=== PATIENT | female | born 1950 | race Caucasian/White ===

== ENCOUNTER 2018-04-27 10:08 | Emergency (ER) | payer MEDICARE, BC ==
--- NOTE | 2018-04-27 12:23 | UC ---
UC General HPI - HPI Summary HPI Summary: 2-3 day hx increasing redness and swelling R middle toe. no injury. hx deformity and surgery due to RA. - History of Current Complaint Chief Complaint: UCLowerExtremity Stated Complaint: RIGHT FOOT 3RD TOE CONCERN Time Seen by Provider: 04/27/18 12:15 Hx Obtained From: Patient Onset/Duration: Gradual Onset Pain Intensity: 8 - Allergy/Home Medications Allergies/Adverse Reactions: Allergies Allergy/AdvReac Type Severity Reaction Status Date / Time No Known Allergies Allergy Verified 04/27/18 10:27 Home Medications: Home Medications Albuterol HFA INHALER* [Ventolin HFA Inhaler*] 1 - 2 puff INH Q4H PRN 04/27/18 [ History Confirmed 04/27/18] Calcium Carbonate/Vitamin D3 [Calcium 500+D 500-200 mg-Unit] 2 tab PO BID [History Confirmed 04/27/18] Cevimeline(NF) [Evoxac(NF)] 30 mg PO TID 04/27/18 [History Confirmed 04/27/18] Cholecalciferol TAB* [Vitamin D TAB*] 5,000 unit PO DAILY 04/27/18 [History Confirmed 04/27/18] Clotrimazole 1% CREAM* [Clotrimazole 1%*] 1 applic TOPICAL QID PRN 04/27/18 [ History Confirmed 04/27/18] Cyclosporine 0.05% OPHTH (NF) [Restasis 0.05% OPHTH] 1 drop BOTH EYES BID [History Confirmed 04/27/18] DULoxetine DR CAP* [Cymbalta CAP*] 60 mg PO DAILY 04/27/18 [History Confirmed ] Fluticasone-Salmeterol 250-50* [Advair Diskus 250-50*] 1 puff INH BID 04/27/18 [ History Confirmed 04/27/18] Folic Acid TAB* [Folvite TAB*] 2 mg PO DAILY 04/27/18 [History Confirmed ] Losartan/Hydrochlorothiazide [Hyzaar 100/12.5 mg] 1 tab PO DAILY 04/27/18 [ History Confirmed 04/27/18] Mirabegron (NF) [Myrbetriq (NF)] 25 mg PO DAILY 04/27/18 [History Confirmed ] [place]-3 Fatty Acids/Fish Oil [Fish Oil 1,000 mg Capsule] 1 each PO BID 04/27/18 [History Confirmed 04/27/18] Omeprazole CAP* [Prilosec CAP* 20 MG] 20 mg PO DAILY PRN 04/27/18 [History Confirmed 04/27/18] Tofacitinib Citrate [Xeljanz] 5 mg PO BID 04/27/18 [History Confirmed 04/27/18] Vitamin THERAPEUTIC TAB* [Theragran TAB*] 1 tab PO DAILY 04/27/18 [History Confirmed 04/27/18] celeCOXIB CAP* [CeleBREX CAP*] 200 mg PO BID PRN 04/27/18 [History Confirmed ] PMH/Surg Hx/FS Hx/Imm Hx - Additional Past Medical History Additional PMH: RA Cardiovascular History: Hypertension Respiratory History: Asthma GI/ History: Gastroesophageal Reflux - Surgical History Surgical History: Yes Surgery Procedure, Year, and Place: 2 toe surgeries. facial surgery - Social History Alcohol Use: Daily Substance Use Type: None Smoking Status (MU): Never Smoked Tobacco Review of Systems All Other Systems Reviewed And Are Negative: Yes Constitutional: Positive: Negative Skin: Positive: Rash - R FOOT Eyes: Positive: Negative ENT: Positive: Negative Respiratory: Positive: Negative Cardiovascular: Positive: Negative Gastrointestinal: Positive: Negative Genitourinary: Positive: Negative Motor: Positive: Negative Neurovascular: Positive: Negative Musculoskeletal: Positive: Arthralgia - RA Neurological: Positive: Negative Psychological: Positive: Negative Physical Exam Triage Information Reviewed: Yes Appearance: Well-Appearing Vital Signs: Initial Vital Signs Temp 97.1 F 04/27/18 10:25 Pulse 75 04/27/18 10:25 Resp 14 04/27/18 10:25 BP 136/65 04/27/18 10:25 Pulse Ox 100 04/27/18 10:25 Vital Signs Reviewed: Yes Eyes: Positive: Conjunctiva Clear ENT: Positive: Normal ENT inspection Neck: Positive: Supple Respiratory: Positive: Lungs clear, Normal breath sounds Cardiovascular: Positive: RRR, No Murmur Abdomen Description: Positive: Nontender, No Organomegaly, Soft Bowel Sounds: Positive: Present Neurological: Positive: Alert Psychological: Positive: Age Appropriate Behavior Skin Exam: Normal Skin: Positive: Rashes - R 3RD TOE DEFORMITY FROM RA WITH ACUTE REDNESS, SWELLING, TENDERNESS AND SMALL SUPERFICIAL ULCER LATERAL SIDE. RED INTO ADJACENT FOOT AND FAINT STREAK TO ANTERIOR ANKLE AREA. Diagnostics - Radiology No standard instances Radiology Interpretation Completed By: Radiologist - 1. STATUS POST FUSION ACROSS THE FIRST MTP JOINT. THERE IS PERIPROSTHETIC LUCENCY CONSISTENT WITH LOOSENING. THE JOINT SPACE IS STILL VISIBLE. 2. THERE IS SOFT TISSUE SWELLING WITHOUT ASSOCIATED EROSION OR PERIOSTEAL REACTION OF THE THIRD DIGIT. PLAIN FILM FINDINGS OF OSTEOMYELITIS ARE RELATIVELY LATE FINDINGS. IF THERE IS PERSISTENT CLINICAL CONCERN FOR OSTEOMYELITIS, RECOMMEND CORRELATION WITH FOLLOWUP IMAGING, THREE-PHASE BONE SCANNING, WHITE BLOOD CELL SCAN, AND/OR MRI OF THE AFFECTED REGION. Course/Dx - Course Course Of Treatment: R 3RD TOE WITH SUPERFICIAL ULCER AND SECONDARY CELLULITIS/ LYMPHANGITIS. NO OSTEOMYELITIS ON XRAY. WILL TX IM ANTIBIOTIC THEN PO AND CLOSE F/U PCP IN 2 DAYS PLUS GO TO ER FOR ANY WORSENING. - Diagnoses Provider Diagnosis: Toe ulcer, right, Cellulitis of foot, right, Lymphangitis Discharge - Sign-Out/Discharge Documenting (check all that apply): Patient Departure All imaging exams completed and their final reports reviewed: Yes - Discharge Plan Condition: Stable Disposition: HOME Prescriptions: Cephalexin CAP* [Keflex CAP*] 500 mg PO TID 10 Days #30 cap Patient Education Materials: Cellulitis (DC), Acute Wound Care (ED), Lymphangitis (ED) Referrals: No Primary Care Phys,NOPCP [Primary Care Provider] - Additional Instructions: FOLLOW UP WITH YOUR PRIMARY CARE AT HOME IN 2 DAYS. GO TO ER FOR ANY WORSENING. SOAK AND DRY FOOT DAILY THEN REAPPLY ANTIBIOTIC OINTMENT AND NON ADHERING DRESSING TO ULCER. - Billing Disposition and Condition Condition: STABLE Disposition: Home - Attestation Statements Provider Attestation: I was available for consult. This patient was seen by the ROSHAN. The patient was not presented to, seen by, or examined by me. -Kina
[2018-04-27] MEDS ORDERED: Lidocaine 1% MPF* 2 ML VIAL INJ ONE (12:56)
[2018-04-27] MEDS ORDERED: cefTRIAXone VIAL(*) 1,000 MG VIAL IM ONE (12:56)
[2018-04-27 13:22] VITALS: BP 119/80
== END 2018-04-27 13:22 | disposition home or self-care (01) ==
LOC: UCCORT 10:08
DX: L97.519 Non-pressure chronic ulcer of other part of right foot with unspecified severity (principal); L03.031 Cellulitis of right toe; I89.1 Lymphangitis; I10 Essential (primary) hypertension; J45.909 Unspecified asthma, uncomplicated; K21.9 Gastro-esophageal reflux disease without esophagitis
CPT/HCPCS: 96372; 99203; G0463; J0696